=== PATIENT | female | born 1955 | race Caucasian/White ===

== ENCOUNTER 2023-10-23 08:24 | Day surgery (SDC) | payer MEDICAID ==
[~2023-10-23] VITALS: Ht 134.6 cm; Wt 94.4 kg
[2023-10-23] MEDS ORDERED: LIDOCAINE/PF 2% 5 ML VIAL IM ONE (08:25)
[2023-10-23] MEDS ORDERED: PROPOFOL 1% 20 ML VIAL IVP ONE (08:25)
[2023-10-23] MEDS ORDERED: LISI10TA24 PO (09:02)
[2023-10-23] MEDS ORDERED: ATOR40TA71 PO (09:02)
[2023-10-23] MEDS ORDERED: METF-446 PO (09:02)
[2023-10-23 09:36] LABS: GLUCOMETER DEV NAME(LOC) SDS.; GLUCOSE,POINT OF CARE 151 MG/DL (70-110)
[2023-10-23] MEDS ORDERED: SODIUM CHLORIDE 0.9% 1,000 ML IV ONE (11:00)
== END 2023-10-23 12:15 | disposition home or self-care (01) ==
LOC: SURGERY 08:24
PROVIDERS: ATTEND Internal Medicine Gastroenterology
DX: Z12.11 Encounter for screening for malignant neoplasm of colon (principal); K64.8 Other hemorrhoids; R10.9 Unspecified abdominal pain; K29.50 Unspecified chronic gastritis without bleeding; K21.9 Gastro-esophageal reflux disease without esophagitis; I10 Essential (primary) hypertension; E11.9 Type 2 diabetes mellitus without complications; E66.9 Obesity, unspecified
CPT/HCPCS: 82962; 88305; 45378; 43239; C1769; J2704; J3490